=== PATIENT | female | born 1935 | race Caucasian/White ===

== ENCOUNTER 2025-06-15 09:20 | Emergency (ER) | payer MEDICARE, OTHER ==
[~2025-06-15] VITALS: Ht 167.6 cm; Wt 82.0 kg
[2025-06-15 09:23] VITALS: TEMP 97.6
[2025-06-15 10:05] LABS: MEAN PLATELET VOLUME 9.0 FL (7.4-10.4); RED CELL DISTRIBUTION WIDTH 13.1 % (11.5-14.5)
[2025-06-15 10:17] LABS: CREATININE 0.88 MG/DL (0.40-0.90); TOTAL CARBON DIOXIDE 22.9 MMOL/L (24-32); eCRCL 41 ML/MIN; eGFR 61 ML/MIN
--- NOTE | 2025-06-15 10:55 | Physician Documentation ---
Addendum CHIEF COMPLAINT/HPI: The patient is an 89-year-old female with a history of hypothyroidism who pre sents with four days of pain in the posterior lower chest/upper flank. She reports that she regularly exercises but has not changed her routine it is recently and is not aware of having injured herself. She denies anterior chest pain. REVIEW OF SYSTEMS: Constitutional: Denies chills, fatigue, fever, weight gain or weight loss. HEENT: Denies hearing loss, sinus pressure or visual changes. Respiratory: Denies cough, shortness of breath or wheezing. Cardiovascular: Denies chest pain, pain while walking (claudication), edema or palpitations. Gastrointestinal: Denies abdominal pain, blood in stool, constipation, diarrhea, heartburn, loss of appetite, nausea or vomiting. Genitourinary: Denies painful urination (dysuria), excessive amount of urine (polyuria) or urinary frequency. Metabolic/Endocrine: Denies cold intolerance, heat intolerance, excessive thirst (polydipsia) or excessive hunger (polyphagia). Neurological: Denies dizziness, extremity numbness, extremity weakness, headaches, seizures or tremors. Psychiatric: Denies anxiety or depression. Integumentary: Denies breast discharge, breast lump, hives, mole change(s), rash or skin lesion. Musculoskeletal: Denies back pain, joint pain, joint swelling or neck pain. Hematologic: Denies easily bleeding, easily bruises, lymphedema or issues with blood clots. Immunologic: Denies food allergies or seasonal allergies. PHYSICAL EXAMINATION: Vitals and nursing note reviewed. Constitutional: General: Patient is awake, alert, oriented x 4 in no acute distress and well appearing. Speech is clear and lucid. Appearance: Normal appearance. Patient is not ill-appearing, toxic-appearing or diaphoretic. HENT: Head: Normocephalic and atraumatic. Mouth: Mucous membranes are moist. Pharynx: Oropharynx is clear. Eyes: General: No scleral icterus. Extraocular Movements: Extraocular movements intact. Pupils: Pupils are equal, round, and reactive to light. Neck: Supple, no Kernig or Brudzinski sign. Cardiovascular: Rate and Rhythm: Normal rate and regular rhythm. Heart sounds: No murmur heard. Pulmonary: Effort: No respiratory distress. Breath sounds: No wheezing, rhonchi or rales. Abdominal: General: There is no distension. Palpations: There is no fluid wave, hepatomegaly or mass. Tenderness: There is no abdominal tenderness. There is no guarding. Musculoskeletal: General: No swelling or deformity. Skin: Coloration: Skin is not jaundiced. Findings: No erythema or rash. Neurological: Mental Status: Patient is alert. MEDICAL DECISION MAKING: This 89-year-old patient presents with flank pain, no constitutional symptoms and has a urinalysis suggestive of UTI (the urine was quite dilute but there were moderate leukocytes on dipstick). I have discussed this with the and we agreed to start her on an antibiotic. She is allergic to Augmentin and I am going to prescribe Bactrim. Departure Disposition: HOME / SELF CARE / HOMELESS Impression: Primary Impression: Acute urinary tract infection Condition: Stable Additional Instructions: You have been evaluated for urinary tract infection. A prescription has been sent to your pharmacy for an antibiotic (Bactrim). Please take it as directed and have your urine rechecked afterward (in approximately two weeks) by your PCP. In the meantime, return here for worsening symptoms or new/unusual symptoms. Prescriptions Sulfamethoxazole/Trimethoprim (Bactrim Ds Tablet) 800 Mg-160 Mg Tablet 1 TAB PO Q12H for 10 Days, #20 TAB Prov: ROXANNA SANCHEZ MD 06/15/25 Education Educated: Patient Educated regarding: diagnosis, treatment, prognosis ROXANNA SANCHEZ MD Jun 15, 2025 10:55
[2025-06-15 11:01] LABS: LEUKOCYTE ESTERASE ,URINE MODERATE (Neg); NITRITES, URINE NEGATIVE (Neg); OCCULT BLOOD,URINE TRACE-INTACT (Neg)
[2025-06-15 11:08] LABS: UA COLLECTION TYPE CLN CATCH MIDSTREAM
[2025-06-15 11:09] LABS: MUCUS STRANDS FEW /LPF (Neg); SQUAMOUS EPITHELIAL CELL,UR FEW /LPF (FEW)
[2025-06-15 11:10] LABS: RENAL CELLS, URINE MODERATE /HPF
--- NOTE | 2025-06-15 11:48 | RADIOLOGY REPORT ---
CLINICAL HISTORY: poss infection TECHNIQUE: Single view of the chest was obtained. COMPARISON: None FINDINGS: The heart size and pulmonary vasculature are normal. The lungs are clear. IMPRESSION: NO ACUTE CARDIOPULMONARY PROCESS.
[2025-06-15] MEDS ORDERED: SULF1TAB49 PO (15:08)
[2025-06-15] MEDS ORDERED: DIF150T PO (15:12)
[2025-06-15 15:23] VITALS: BP 135/73; PULSE 76; RESP 13; O2SAT 98
== END 2025-06-15 15:22 | disposition home or self-care (01) ==
LOC: ER 09:21
DX: N39.0 Urinary tract infection, site not specified (principal); E03.9 Hypothyroidism, unspecified
CPT/HCPCS: 36415; 71045; 80053; 81001; 83690; 85025; 87088; 99284